=== PATIENT | male | born 1955 | race Caucasian/White ===

== ENCOUNTER 2019-01-30 09:34 | Emergency (ER) | payer BC ==
--- OUTSIDE RECORDS SUMMARY | 2019-01-30 09:37 | XMS REPORT | Clinical Summary ---
:1955 Author Organization [facility] Address [address] [place] [address] Care Team Providers Name Role Phone jJ Dash MD Primary Care Provider Allergies Active Allergy Reactions Severity Noted Date Comments No Known Drug Allergies 04/05/2016 Medications Medication Sig Dispensed Refills Start Date End Date Status CRESTOR 10 mg tablet TK 1 T PO QD- 1 04/06/2016 Active morning- take the morning of surgery lisinopril-hydrochloro TK 1 T PO QD- in 4 04/08/2016 Active thiazide the morning DO NOT (PRINZIDE,ZESTORETIC) TAKE THE MORNING 20-12.5 mg per tablet OF SURGERY meloxicam (MOBIC) 15 Take 15 mg by 0 Active mg tablet mouth daily as needed. Active Problems Problem Noted Date Cellulitis of right elbow 08/18/2017 Olecranon bursitis of right elbow 08/18/2017 S/P total knee arthroplasty 08/23/2016 Degenerative arthritis of knee, bilateral 04/19/2016 Right knee pain 03/25/2016 Family History Relation Name Status Comments Father SEPTIC AFTER BREAKING HIS HIP Mother SPONTANEOUS COLON RUPTURE THEN BECAME SEPTIC- IN 5 MONTHS Social History Tobacco Use Types Packs/Day Years Used Date Former Smoker Cigarettes 0.5 8 Quit: 1985 Smokeless Tobacco: Never Used Alcohol Use Drinks/Week oz/Week Comments Yes 4 Drinks per week Sex Assigned at Date Recorded Not on file Job Start Date Occupation Industry Not on file Not on file Not on file Travel History Travel Start Travel End No recent travel history available. 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 Shelf Model / Identifier Expiration Serial / Lot Date Bmt 360 Tib Tray 83mm - [id number] [id number] IMPLANT Right: [employer] 2025 [id number] / Implanted: Qty: 1 on 04/19/2016 by Reg Diaz MD DEVICES Knee / [id number] Splined Knee Stem With Screw V2 [id number] - [id number] IPM IMPLANT Right: [employer] [id number] / Implanted: Qty: 1 on 04/19/2016 by Reg Diaz MD DEVICES Knee / E-Poly Vanguard As Tib Brng 16x83 - [id number] [id number] IMPLANT Right: [employer] 11/27/2020 EP [id number] / Implanted: Qty: 1 on 04/19/2016 by Reg Diaz MD DEVICES Knee / [id number] Series A Pat Std 40 3 Peg - [id number] IPM IMPLANT Right: [employer] 02/05 [id number] / Implanted: Qty: 1 on 04/19/2016 by Reg Diaz MD DEVICES Knee / [id number] Vanguard Cr Ilok Fem-Rt 67.5 - [id number] IPM IMPLANT Right: [employer] [id number] / Implanted: Qty: 1 on 04/19/2016 by Reg Diaz MD DEVICES Knee / [id number] Small Cruciat Wing - [id number] IPM IMPLANT Right: [employer] 05/28/2025 [id number] / Implanted: Qty: 1 on 04/19/2016 by Reg Diaz MD DEVICES Knee / [id number] Biomet Smooth Knee Stems 20x40 - [id number] IPM IMPLANT Left: [employer] 08/06/2025 [id number] / Implanted: 08/23/2016 (Quantity not on file) DEVICES Knee / [id number] Bmt 360 Tib Tray 83mm - [id number] IPM IMPLANT Left: [employer] 2025 [id number] / Implanted: 08/23/2016 (Quantity not on file) DEVICES Knee / [id number] E-Poly Vanguard As Tib Brng 14x83 - [id number] IPM IMPLANT Left: [employer] 09/15/2020 [id number] / Implanted: 08/23/2016 (Quantity not on file) DEVICES Knee / [id number] Series A Pat Std 40 3 Peg - [id number] IPM IMPLANT Left: [employer] 07/29 [id number] / Implanted: 08/23/2016 (Quantity not on file) DEVICES Knee / [id number] Small Cruciat Wing - [id number] IPM IMPLANT Left: [employer] 02/04/2026 [id number] / Implanted: Qty: 1 on 08/23/2016 by Reg Diaz MD DEVICES Knee / [id number] Cement Bone R+G 1dose Palacos - [id number] Knee Joint Right: [employer] [id number] / Implanted: Qty: 1 on 04/19/2016 by Reg Diaz MD Implants Knee / [id number] Cement Bone R+G 1dose Palacos - [id number] Knee Joint Right: [employer] [id number] / Implanted: Qty: 1 on 04/19/2016 by Reg Diaz MD Implants Knee / [id number] Cement Bone R+G 1dose Palacos - [id number] Knee Joint Left: [employer] [id number] / Implanted: Qty: 1 on 08/23/2016 by Reg Diaz MD Implants Knee / [id number] Cement Bone R+G 1dose Palacos - [id number] Knee Joint Left: [employer] [id number] / Implanted: Qty: 1 on 08/23/2016 by Reg Diaz MD Implants Knee / [id number] Component Fml Cr Lt Anatom Interlok 70mm Vanguard - [id number] Knee Joint Left : [employer] 07/09/2026 [id number] / Implanted: 08/23/2016 (Quantity not on file) Implants Knee / [id number] Results Not on fileafter 01/29/2018 (Home) [facility] [place] [phone] [place] [id number] (Work) Advance Directives Patient has advance care planning documents on file. For more information, please contact:Zurdo Santos[address] [place] [address]
[2019-01-30] MEDS ORDERED: METHYLPREDNISOLONE 125 MG INJ ONE (11:03)
[2019-01-30] MEDS ORDERED: HYDROCODONE/APAP 10/325 TAB ONE (11:04)
--- NOTE | 2019-01-30 11:14 | RAD REPORT ---
EXAM DESCRIPTION: RAD - Ankle Right 3 View - 01/30/2019 11:07 am CLINICAL HISTORY: PAIN Pain and swelling COMPARISON: No comparisons FINDINGS: Moderate soft tissue swelling is seen about the ankle. Mild ankle joint degenerative niño es are present. Small plantar calcaneal spur. No fracture or dislocation.
--- NOTE | 2019-01-30 11:22 | ER ---
Nurse's Notes [facility] Name: Donald Howard Age: 63 yrs Sex: Male : 1955 Arrival Date: 01/30/2019 Time: 09:37 Bed 23 Private MD: Jj Dash Diagnosis: Monoarthritis, not elsewhere classified, right ankle and foot Presentation: 01/30 09:42 Presenting complaint: Right foot pain and swelling x 2 weeks. Hx of gout. Transition of hb care: patient was not received from another setting of care. Onset of symptoms is unknown. Risk Assessment: Do you want to hurt yourself or someone else? Patient reports no desire to harm self or others. Care prior to arrival: None. 09:42 Method Of Arrival: Wheelchair hb 09:42 Acuity: RIP 3 hb 10:10 Initial Sepsis Screen: Does the patient meet any 2 criteria? No. Patient's initial sg sepsis screen is negative. Does the patient have a suspected source of infection? No. Patient's initial sepsis screen is negative. Historical: - Allergies: 09:45 No Known Allergies; hb - Home Meds: 09:45 allopurinol 300 mg Oral tab 1 tab once daily [Active]; rosuvastatin oral oral [Active]; hb mann extract [Active]; Nexium Oral [Active]; Xyzal oral oral [Active]; unknown hypertention medication [Active]; - PMHx: 09:45 Gout; Hypertension; High Cholesterol; hb - PSHx: 09:45 Knee - Bilateral; Tonsillectomy; Elbow - Bilateral; hb - Immunization history:: Adult Immunizations up to date. - Social history:: Smoking status: Patient/guardian denies using tobacco, Patient/guardian denies using alcohol, street drugs, The patient lives with family. - Ebola Screening: : No symptoms or risks identified at this time. - Family history:: not pertinent. Screenin:10 Abuse screen: Denies threats or abuse. Denies injuries from another. Nutritional sg screening: No deficits noted. Tuberculosis screening: No symptoms or risk factors identified. Never had TB. Fall Risk None identified. Assessment: 10:10 General: Appears in no apparent distress. well groomed, well developed, well nourished, sg Behavior is calm, cooperative, appropriate for age. Pain: Complains of pain in right foot Quality of pain is described as aching, throbbing. Neuro: Level of Consciousness is awake, alert, obeys commands, Oriented to person, place, time, Speech is normal. Cardiovascular: Capillary refill is brisk in bilateral fingers Patient's skin is warm and dry. Chest pain is denied. Respiratory: Airway is patent Respiratory effort is even, unlabored, Respiratory pattern is regular, symmetrical. GI: Abdomen is round non-distended, Reports tolerance of fluids, tolerance of food. : No signs and/or symptoms were reported regarding the genitourinary system. EENT: No signs and/or symptoms were reported regarding the EENT system. Derm: Skin is pink, warm \T\ dry. Musculoskeletal: No signs and/or symptoms reported regarding the musculoskeletal system. Circulation, motion, and sensation intact. Range of motion: intact in all extremities, Swelling present in right foot. 11:48 Reassessment: Patient appears in no apparent distress at this time. Patient and/or sg family updated on plan of care and expected duration. Pain level reassessed. Patient is alert, oriented x 3, equal unlabored respirations, skin warm/dry/pink. awaiting Xray copies to be delivered prior to dc to home Patient states feeling better. Vital Signs: 09:45 BP 152 / 82; Pulse 88; Resp 16; Temp 98.8; Pulse Ox 100% ; Weight 120.2 kg; Height 6 hb ft. (182.88 cm); Pain 10/10; 09:45 Body Mass Index 35.94 (120.20 kg, 182.88 cm) hb ED Course: 09:37 Patient arrived in ED. as 09:37 Jj Dash MD is Private Physician. as 09:43 Triage completed. hb 09:45 Arm band placed on. hb 10:04 Dana Moreno MD is Attending Physician. ma2 10:08 Ramesh Whittington, MARCY is Primary Nurse. sg 10:10 Patient has correct armband on for positive identification. Bed in low position. Side sg rails up X2. Pulse ox on. NIBP on. Head of bed elevated. 10:10 No provider procedures requiring assistance completed. sg 11:08 XRAY Ankle RIGHT 3 view In Process Unspecified. EDMS 11:30 IV discontinued, intact, bleeding controlled, No redness/swelling at site. Pressure sg dressing applied. Administered Medications: 10:55 Drug: MethylPREDNISolone Sodium Succinate 125 mg Route: IM; Site: right deltoid; sg 11:48 Follow up: Response: No adverse reaction sg 10:55 Drug: [place] 10 mg-325 mg 1 tabs Route: PO; sg 11:48 Follow up: Response: No adverse reaction; Pain is decreased sg Outcome: 11:21 Discharge ordered by MD. [place] 11:31 Discharged to home ambulatory, with family. sg 11:31 Condition: good 11:31 Discharge instructions given to patient, Instructed on discharge instructions, follow up and referral plans. safety practices, Demonstrated understanding of instructions, follow-up care, medications, Prescriptions given X 2. 11:51 Patient left the ED. sg Signatures: Dispatcher [employer] EDRamesh Prince RN RN sg Martinez, Amelia as Baxter, Heather, RN RN Dana Moreno MD MD ma2 Corrections: (The following items were deleted from the chart) 11:11 10:10 Musculoskeletal: No signs and/or symptoms reported regarding the musculoskeletal sg system. sg
--- NOTE | 2019-01-30 11:22 | EDPHYS ---
Physician Documentation [facility] Name: Donald Howard Age: 63 yrs Sex: Male : 1955 Arrival Date: 01/30/2019 Time: 09:37 Bed 23 Private MD: Jj Dash ED Physician Dana Moreno HPI: 01/30 11:17 This 63 yrs old Male presents to ER via Wheelchair with complaints of Ankle ma2 Swelling, Feet Swelling. 11:17 The patient presents with decreased range of motion, pain. Onset: The symptoms/episode ma2 began/occurred gradually, 10 day(s) ago. Associated signs and symptoms: Pertinent positives: swelling, Pertinent negatives: rash, weakness. Severity of symptoms: At their worst the symptoms were moderate, in the emergency department the symptoms are unchanged. The patient has experienced similar episodes in the past. 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 Historical: - Allergies: 09:45 No Known Allergies; hb - Home Meds: 09:45 allopurinol 300 mg Oral tab 1 tab once daily [Active]; rosuvastatin oral oral [Active]; hb mann extract [Active]; Nexium Oral [Active]; Xyzal oral oral [Active]; unknown hypertention medication [Active]; - PMHx: 09:45 Gout; Hypertension; High Cholesterol; hb - PSHx: 09:45 Knee - Bilateral; Tonsillectomy; Elbow - Bilateral; hb - Immunization history:: Adult Immunizations up to date. - Social history:: Smoking status: Patient/guardian denies using tobacco, Patient/guardian denies using alcohol, street drugs, The patient lives with family. - Ebola Screening: : No symptoms or risks identified at this time. - Family history:: not pertinent. ROS: 11:17 Constitutional: Negative for fever, chills, and weight loss, Eyes: Negative for injury, ma2 pain, redness, and discharge. 11:17 MS/extremity: Positive for decreased range of motion, pain, Negative for contusion, paresthesias, warmth. 11:17 All other systems are negative. Exam: 11:17 Constitutional: This is a well developed, well nourished patient who is awake, alert, ma2 and in no acute distress. Chest/axilla: Normal chest wall appearance and motion. Nontender with no deformity. No lesions are appreciated. Cardiovascular: Regular rate and rhythm with a normal S1 and S2. No gallops, murmurs, or rubs. Normal PMI, no JVD. No pulse deficits. Respiratory: Lungs have equal breath sounds bilaterally, clear to auscultation and percussion. No rales, rhonchi or wheezes noted. No increased work of breathing, no retractions or nasal flaring. Abdomen/GI: Soft, non-tender, with normal bowel sounds. No distension or tympany. No guarding or rebound. No evidence of tenderness throughout. Skin: Warm, dry with normal turgor. Normal color with no rashes, no lesions, and no evidence of cellulitis. Neuro: Awake and alert, GCS 15, oriented to person, place, time, and situation. Cranial nerves II-XII grossly intact. Motor strength 5/5 in all extremities. Sensory grossly intact. Cerebellar exam normal. Normal gait. 11:17 Musculoskeletal/extremity: Extremities: grossly normal except: decreased ROM, pain, ROM: limited active range of motion, limited passive range of motion, Pulses: Sensation intact. Compartment Syndrome exam of affected extremity: is normal. Vital Signs: 09:45 BP 152 / 82; Pulse 88; Resp 16; Temp 98.8; Pulse Ox 100% ; Weight 120.2 kg; Height 6 hb ft. (182.88 cm); Pain 10/10; 09:45 Body Mass Index 35.94 (120.20 kg, 182.88 cm) hb MDM: 10:04 Patient medically screened. [facility] 11:17 Differential diagnosis: fracture, sprain, arthritis, gout. Data reviewed: vital signs, ma2 nurses notes. Counseling: I had a detailed discussion with the patient and/or guardian regarding: the historical points, exam findings, and any diagnostic results supporting the discharge/admit diagnosis, the presence of at least one elevated blood pressure reading (>120/80) during this emergency department visit, the need for outpatient follow up. Response to treatment: the patient's symptoms have markedly improved after treatment, the patient's symptoms have resolved after treatment. 01/30 10:44 Order name: XRAY Ankle RIGHT 3 view ma2 Administered Medications: 10:55 Drug: MethylPREDNISolone Sodium Succinate 125 mg Route: IM; Site: right deltoid; sg 11:48 Follow up: Response: No adverse reaction sg 10:55 Drug: [place] 10 mg-325 mg 1 tabs Route: PO; sg 11:48 Follow up: Response: No adverse reaction; Pain is decreased sg Disposition: 01/30/19 11:21 Discharged to Home. Impression: Monoarthritis, not elsewhere classified, right ankle and foot. - Condition is Stable. - Discharge Instructions: Arthritis. - Prescriptions for Tylenol- Codeine #3 300-30 mg Oral Tablet - take 2 tablet by ORAL route every 6 hours As needed; 6 tablet. Medrol (Kristian) 4 mg Oral Tablets, Dose Pack - take 1 tablet by ORAL route as directed - follow package instructions; 1 packet. - Medication Reconciliation Form, Thank You Letter, Antibiotic Education, Prescription Opioid Use form. - Follow up: Private Physician; When: Tomorrow; Reason: Continuance of care. Signatures: Dispatcher [employer] EDRamesh Prince RN RN sg Baxter, Heather, RN RN hb Alzahri, Mohammad, MD MD ma2 Corrections: (The following items were deleted from the chart) 11:51 11:21 01/30/2019 11:21 Discharged to Home. Impression: Monoarthritis, not elsewhere sg classified, right ankle and foot. Condition is Stable. Prescriptions for Tylenol-Codeine #3 300-30 mg Oral Tablet - take 2 tablet by ORAL route every 6 hours As needed; 6 tablet, Medrol (Kristian) 4 mg Oral Tablets, Dose Pack - take 1 tablet by ORAL route as directed - follow package instructions; 1 packet. and Forms are Medication Reconciliation Form, Thank You Letter, Antibiotic Education, Prescription Opioid Use. Follow up: Private Physician; When: Tomorrow; Reason: Continuance of care. ma2
[2019-01-30 11:54] VITALS: BP 152/82; TEMP 98.8; O2SAT 100
== END 2019-01-30 11:51 | disposition home or self-care (01) ==
LOC: ER 09:34
DX: M13.171 Monoarthritis, not elsewhere classified, right ankle and foot (principal); M25.472 Effusion, left ankle; M10.9 Gout, unspecified; I10 Essential (primary) hypertension
CPT/HCPCS: 96372; 99284; J2930